=== PATIENT | male | born 1960 | race Hispanic/Latino ===

== ENCOUNTER → 2019-03-27 | Day surgery (SDC) | payer OTHER, BC ==
--- NOTE | 2019-03-27 10:45 | RAD REPORT ---
EXAM DESCRIPTION: US - Breast Core BX w/US Guidance - 03/27/2019 10:35 am CLINICAL HISTORY: N63.0 COMPARISON: Mammogram/ultrasound studies March 08 TECHNIQUE: The patient presents for ultrasound-guided biopsy of a previously detailed 2.4 centimeter mass 12 o'clock right breast/chest region. The ultrasound-guided core biopsy procedure, risks and alternatives were discussed with the patient i n detail. After answering all questions, both oral and written consent were obtained. Time out proced ure was performed. The patient had no contraindicated allergy or medication history. Preliminary imaging identified the mass. The anterior chest was prepped and draped in the usual steri le fashion. From a medial approach, skin and deeper tissues were anesthetized with 1% lidocaine. Unde r direct sonographic visualization a 14 gauge vacuum assisted core biopsy needle was advanced and ray júnior at the medial margin of the mass. There were a total of 2 core biopsies obtained under direct son ographic guidance. On both core biopsy attempts the needle was seen to traverse the substance of the mass. At the conclusion of the procedure a localization clip was placed under sonographic guidance. Clip wa s placed within the substance of the mass. Post biopsy imaging showed no hematoma or measurable bleeding within the chest soft tissues. Hemostas is was obtained at the skin site with a sterile bandage placed. Post procedure care and precaution instructions were given to the patient. IMPRESSION: 1. Ultrasound-guided core biopsy was performed of the right breast/chest mass. All obtai kathy material was given to pathology for histologic assessment. 2. Post biopsy localization clip was placed under ultrasound guidance.
== END ==
LOC: DS 09:27
PROVIDERS: ATTEND Internal Medicine
DX: N63.0 Unspecified lump in unspecified breast (principal)
CPT/HCPCS: 19083; 88305